=== PATIENT | male | born 1970 | race Hispanic/Latino ===

== ENCOUNTER 2020-09-01 12:11 | Inpatient (IN) | payer BC ==
[~2020-09-01] VITALS: Ht 182.9 cm; Wt 81.4 kg
[2020-09-01] MEDS ORDERED: CEFTRIAXONE 1G VIAL ONE (13:08)
[2020-09-01] MEDS ORDERED: DEXAMETHASONE SOD PHOSPHATE 10MG/ML 1ML VIAL ONE (13:08)
[2020-09-01] MEDS ORDERED: ALBUTEROL INHALER 90MCG/INH IH ONE (13:08)
[2020-09-01] MEDS ORDERED: AZITHROMYCIN 250 MG TABLET PO ONE (13:09)
[2020-09-01] MEDS ORDERED: ACETAMINOPHEN WITH CODEINE 1 TAB TAB ONE (13:09)
[2020-09-01 13:18] LABS: APPEARANCE,URINE Clear (CLEAR); BILIRUBIN,URINE Negative (NEGATIVE); COLOR,URINE Dark Yellow (YELLOW); GLUCOSE, URINE (UA) Negative (NEGATIVE); KETONES,URINE Negative (NEGATIVE); LEUKOCYTE ESTERASE ,URINE Negative (NEGATIVE); NITRATE,URINE Negative (NEGATIVE); OCCULT BLOOD,URINE Negative (NEGATIVE); PROTEIN,URINE POS 1+ mg/dL (NEGATIVE)
[2020-09-01 13:22] LABS: ABG BASE EXCESS -0.6 mmol/L (-2.0-3.0); ABG HCO3 22.2 mmol/L (21.0-28.0); ABG OXYGEN SATURATION 88.9 % (95.0-99.0); ABG PCO2 32 mmHg (35-48)
[2020-09-01 13:22] LABS: BASOPHILS % (AUTO) 0.1 % (0.0-5.0); HEMATOCRIT 46.6 % (42-54); LYMPHOCYTES % (AUTO) 9.2 % (21.0-51.0); MEAN CORPUSCULAR HEMOGLOBIN 29.1 pg (27.0-33.0); MEAN CORPUSCULAR HGB CONC 33.7 g/dL (32.0-36.0); MEAN CORPUSCULAR VOLUME 86.5 fL (79-99); MONOCYTES % (AUTO) 8.8 % (3.0-13.0); NEUTROPHILS % (AUTO) 81.5 % (40.0-77.0); PLATELET COUNT (AUTO) 216 K/uL (130-400); RED BLOOD CELL COUNT(AUTO) 5.39 MIL/uL (4.50-6.20); RED CELL DISTRIBUTION WIDTH 12.5 % (11.0-15.5); WHITE BLOOD COUNT (AUTO) 8.1 K/uL (4.8-10.8)
[2020-09-01 13:30] LABS: CREATININE 1.3 mg/dL (0.5-1.5)
[2020-09-01 13:35] LABS: ALBUMIN 3.4 g/dL (3.5-5.0); BILIRUBIN,TOTAL 0.7 mg/dL (0.2-1.0); PROTHROMBIN TIME 10.7 SEC (9.6-11.6); TOTAL PROTEIN, SERUM 7.5 g/dL (6.0-8.3)
[2020-09-01 13:37] LABS: PARTIAL THROMBOPLASTIN TIME 27.1 SEC (26.3-35.5)
[2020-09-01 13:47] LABS: BACTERIA,URINE Rare /HPF (None Seen); MUCUS,URINE Rare LPF (None Seen); RBC,URINE None Seen /HPF (0-1); SQUAMOUS EPITHELIAL CELL,UR 0-2 /HPF (0-2); WBC,URINE None Seen /HPF (0-1)
[2020-09-01] MEDS ORDERED: ASPIRIN 325 MG TABLET ONE (14:27)
[2020-09-01] MEDS: DEXAMETHASONE SOD PHOSPHATE 4 MG/ML 1ML VIAL IVP SCH (14:45)
[2020-09-01] MEDS ORDERED: ONDANSETRON 4MG INJ IV PRN (14:45)
[2020-09-01] MEDS ORDERED: NITROGLYCERIN 0.4 MG SL TAB SL PRN (14:45)
[2020-09-01] MEDS ORDERED: LACTULOSE 20 GM/30 ML UDCUP PO PRN (14:45)
[2020-09-01] MEDS ORDERED: GUAIFENESIN-DM 200/20 MG 10 ML PO PRN (14:45)
[2020-09-01] MEDS ORDERED: ACETAMINOPHEN 325 MG TAB PO PRN ×2 (14:45)
[2020-09-01] MEDS ORDERED: ERGOCALCIFEROL (VITAMIN D2) 50,000 UNIT CAPSULE PO ONE (14:45)
[2020-09-01] MEDS ORDERED: DIPHENHYDRAMINE HCL 25 MG CAPSULE PO PRN (14:45)
[2020-09-01] MEDS ORDERED: DiphenhydrAMINE HCL 50 MG/ML VIAL IV PRN (14:45)
[2020-09-01] MEDS: CEFTRIAXONE 1G VIAL IV SCH (14:45)
[2020-09-01] MEDS ORDERED: MAG/ALUM/SIMETH 30 ML UDCUP PO PRN (14:45)
[2020-09-01] MEDS ORDERED: ERGOCALCIFEROL (VITAMIN D2) 50,000 UNIT CAPSULE ONE (15:12)
[2020-09-01] MEDS ORDERED: ENOXAPARIN SODIUM 40 MG/0.4 ML SYRINGE SQ ONE (15:13)
[2020-09-01] MEDS ORDERED: ZINC SULFATE 220 CAPSULE ONE (15:13)
[2020-09-01] MEDS ORDERED: ACETYLCYSTEINE 600 MG CAPSULE ONE (15:13)
[2020-09-01] MEDS: ACETYLCYSTEINE 600 MG CAPSULE PO SCH (21:00)
[2020-09-02 05:46] LABS: HEMATOCRIT 42.3 % (42-54); LYMPHOCYTES % (AUTO) 4.3 % (21.0-51.0); MEAN CORPUSCULAR HEMOGLOBIN 29.1 pg (27.0-33.0); MEAN CORPUSCULAR HGB CONC 33.3 g/dL (32.0-36.0); MEAN CORPUSCULAR VOLUME 87.2 fL (79-99); MONOCYTES % (AUTO) 4.3 % (3.0-13.0); NEUTROPHILS % (AUTO) 90.7 % (40.0-77.0); PLATELET COUNT (AUTO) 226 K/uL (130-400); RED BLOOD CELL COUNT(AUTO) 4.85 MIL/uL (4.50-6.20); RED CELL DISTRIBUTION WIDTH 12.5 % (11.0-15.5); WHITE BLOOD COUNT (AUTO) 11.3 K/uL (4.8-10.8)
[2020-09-02 06:17] LABS: ALBUMIN 2.9 g/dL (3.5-5.0); BILIRUBIN,TOTAL 0.6 mg/dL (0.2-1.0); CREATININE 1.1 mg/dL (0.5-1.5); CRP QUANTITATIVE 118.1 mg/L (0.00-9.0); POTASSIUM 3.7 mmol/L (3.5-5.1); TOTAL PROTEIN, SERUM 7.2 g/dL (6.0-8.3)
[2020-09-02] MEDS ORDERED: DEXAMETHASONE SOD PHOSPHATE 10MG/ML 1ML VIAL ONE (08:10)
[2020-09-02] MEDS ORDERED: ASCORBIC ACID 500 MG TAB ONE (08:11)
[2020-09-02] MEDS ORDERED: ZINC SULFATE 220 CAPSULE ONE (08:11)
[2020-09-02] MEDS ORDERED: ACETYLCYSTEINE 600 MG CAPSULE ONE (08:11)
[2020-09-02] MEDS ORDERED: ENOXAPARIN SODIUM 40 MG/0.4 ML SYRINGE SQ ONE (08:11)
[2020-09-02] MEDS ORDERED: ACETAMINOPHEN 325 MG TAB ONE (08:12)
[2020-09-02] MEDS: ZINC SULFATE 220 CAPSULE PO SCH (09:00)
[2020-09-02] MEDS: ACETYLCYSTEINE 600 MG CAPSULE PO SCH ×2 (09:00→21:00)
[2020-09-02] MEDS ORDERED: ENOXAPARIN SODIUM 40 MG/0.4 ML SYRINGE SQ SCH (09:00)
[2020-09-02] MEDS: ASCORBIC ACID 500 MG TAB PO SCH (09:00)
[2020-09-02] MEDS ORDERED: 0.9%NACL 50ML 50 ML IV ONE (14:25)
[2020-09-02] MEDS ORDERED: CEFTRIAXONE 1G VIAL ONE (14:25)
[2020-09-02] MEDS: DEXAMETHASONE SOD PHOSPHATE 4 MG/ML 1ML VIAL IVP SCH (14:45)
[2020-09-02] MEDS: CEFTRIAXONE 1G VIAL IV SCH (14:45)
[2020-09-03] MEDS ORDERED: ACETYLCYSTEINE 600 MG CAPSULE ONE ×3 (03:50→20:10)
[2020-09-03 05:20] LABS: BASOPHILS % (AUTO) 0.1 % (0.0-5.0); HEMATOCRIT 40.9 % (42-54); LYMPHOCYTES % (AUTO) 6.6 % (21.0-51.0); MEAN CORPUSCULAR HEMOGLOBIN 29.2 pg (27.0-33.0); MEAN CORPUSCULAR HGB CONC 33.7 g/dL (32.0-36.0); MEAN CORPUSCULAR VOLUME 86.7 fL (79-99); MONOCYTES % (AUTO) 5.4 % (3.0-13.0); NEUTROPHILS % (AUTO) 87.1 % (40.0-77.0); PLATELET COUNT (AUTO) 286 K/uL (130-400); RED BLOOD CELL COUNT(AUTO) 4.72 MIL/uL (4.50-6.20); RED CELL DISTRIBUTION WIDTH 12.5 % (11.0-15.5); WHITE BLOOD COUNT (AUTO) 14.2 K/uL (4.8-10.8)
[2020-09-03 05:45] LABS: ALBUMIN 2.7 g/dL (3.5-5.0); BILIRUBIN,TOTAL 0.5 mg/dL (0.2-1.0); CRP QUANTITATIVE 179.7 mg/L (0.00-9.0); POTASSIUM 3.9 mmol/L (3.5-5.1); TOTAL PROTEIN, SERUM 7.2 g/dL (6.0-8.3)
[2020-09-03] MEDS: ASCORBIC ACID 500 MG TAB PO SCH (09:00)
[2020-09-03] MEDS: ACETYLCYSTEINE 600 MG CAPSULE PO SCH ×2 (09:00→21:00)
[2020-09-03] MEDS: ZINC SULFATE 220 CAPSULE PO SCH (09:00)
[2020-09-03] MEDS ORDERED: ZINC SULFATE 220 CAPSULE ONE (09:02)
[2020-09-03] MEDS ORDERED: ASCORBIC ACID 500 MG TAB ONE (09:02)
[2020-09-03] MEDS ORDERED: ENOXAPARIN SODIUM 40 MG/0.4 ML SYRINGE SQ ONE (09:03)
[2020-09-03] MEDS: ENOXAPARIN SODIUM 40 MG/0.4 ML SYRINGE SQ SCH ×2 (11:00→21:00)
[2020-09-03] MEDS ORDERED: DEXAMETHASONE SOD PHOSPHATE 10MG/ML 1ML VIAL ONE (14:14)
[2020-09-03] MEDS ORDERED: CEFTRIAXONE 1G VIAL ONE (14:14)
[2020-09-03] MEDS: DEXAMETHASONE SOD PHOSPHATE 4 MG/ML 1ML VIAL IVP SCH (14:45)
[2020-09-03] MEDS: CEFTRIAXONE 1G VIAL IV SCH (14:45)
[2020-09-04 00:15] VITALS: BP 142/92
[2020-09-04 03:30] VITALS: BP 130/73
[2020-09-04 07:00] VITALS: BP 116/72
[2020-09-04 07:16] LABS: BASOPHILS % (AUTO) 0.2 % (0.0-5.0); HEMATOCRIT 42.1 % (42-54); LYMPHOCYTES % (AUTO) 10.4 % (21.0-51.0); MEAN CORPUSCULAR HEMOGLOBIN 28.7 pg (27.0-33.0); MEAN CORPUSCULAR HGB CONC 33.7 g/dL (32.0-36.0); MEAN CORPUSCULAR VOLUME 85.1 fL (79-99); MONOCYTES % (AUTO) 7.9 % (3.0-13.0); NEUTROPHILS % (AUTO) 80.5 % (40.0-77.0); PLATELET COUNT (AUTO) 358 K/uL (130-400); RED BLOOD CELL COUNT(AUTO) 4.95 MIL/uL (4.50-6.20); RED CELL DISTRIBUTION WIDTH 12.6 % (11.0-15.5); WHITE BLOOD COUNT (AUTO) 10.2 K/uL (4.8-10.8)
[2020-09-04 07:38] LABS: ALBUMIN 2.7 g/dL (3.5-5.0); BILIRUBIN,TOTAL 0.6 mg/dL (0.2-1.0); CREATININE 0.9 mg/dL (0.5-1.5); CRP QUANTITATIVE 91.6 mg/L (0.00-9.0); TOTAL PROTEIN, SERUM 7.3 g/dL (6.0-8.3)
[2020-09-04] MEDS ORDERED: CEFDINIR 125MG/5ML 100ML BOTTLE PO SCH (09:00)
[2020-09-04] MEDS: ZINC SULFATE 220 CAPSULE PO SCH (09:07)
[2020-09-04] MEDS: ASCORBIC ACID 500 MG TAB PO SCH (09:07)
[2020-09-04] MEDS: ACETYLCYSTEINE 600 MG CAPSULE PO SCH ×2 (09:07→20:13)
[2020-09-04] MEDS: ENOXAPARIN SODIUM 40 MG/0.4 ML SYRINGE SQ SCH ×2 (09:07→20:14)
[2020-09-04] MEDS: CEFDINIR 125MG/5ML 100ML BOTTLE PO SCH ×2 (10:15→20:13)
[2020-09-04 11:00] VITALS: BP 123/79
[2020-09-04] MEDS: DEXAMETHASONE SOD PHOSPHATE 4 MG/ML 1ML VIAL IVP SCH (13:48)
[2020-09-04 16:00] VITALS: BP 113/74
[2020-09-04 20:00] VITALS: BP 120/72
[2020-09-05] VITALS: BP 100/57
[2020-09-05 04:00] VITALS: BP 109/71
[2020-09-05 04:36] LABS: HEMATOCRIT 41.5 % (42-54); MEAN CORPUSCULAR HEMOGLOBIN 28.7 pg (27.0-33.0); MEAN CORPUSCULAR HGB CONC 33.3 g/dL (32.0-36.0); MEAN CORPUSCULAR VOLUME 86.3 fL (79-99); NEUTROPHILS % (AUTO) 76.8 % (40.0-77.0); PLATELET COUNT (AUTO) 382 K/uL (130-400); RED BLOOD CELL COUNT(AUTO) 4.81 MIL/uL (4.50-6.20); RED CELL DISTRIBUTION WIDTH 12.4 % (11.0-15.5); WHITE BLOOD COUNT (AUTO) 9.4 K/uL (4.8-10.8)
[2020-09-05 04:37] LABS: BASOPHILS % (AUTO) 0.2 % (0.0-5.0); LYMPHOCYTES % (AUTO) 13.5 % (21.0-51.0); MONOCYTES % (AUTO) 8.1 % (3.0-13.0)
[2020-09-05 04:59] LABS: CRP QUANTITATIVE 48.9 mg/L (0.00-9.0); POTASSIUM 4.2 mmol/L (3.5-5.1)
[2020-09-05 09:00] VITALS: BP 100/57
[2020-09-05] MEDS: ZINC SULFATE 220 CAPSULE PO SCH (09:20)
[2020-09-05] MEDS: ASCORBIC ACID 500 MG TAB PO SCH (09:20)
[2020-09-05] MEDS: ACETYLCYSTEINE 600 MG CAPSULE PO SCH ×2 (09:20→21:14)
[2020-09-05] MEDS: ENOXAPARIN SODIUM 40 MG/0.4 ML SYRINGE SQ SCH ×2 (09:21→21:14)
[2020-09-05 12:30] VITALS: BP 92/53
[2020-09-05] MEDS: CEFDINIR 125MG/5ML 100ML BOTTLE PO SCH ×2 (12:45→21:15)
[2020-09-05] MEDS: DEXAMETHASONE SOD PHOSPHATE 4 MG/ML 1ML VIAL IVP SCH (12:46)
[2020-09-05 17:14] VITALS: BP 111/65
[2020-09-05 20:00] VITALS: BP 105/68
[2020-09-06] VITALS (7 sets, daily range): BP systolic 101–121; BP diastolic 64–78
[2020-09-06 05:29] LABS: CARBON DIOXIDE 28 mmol/L (21-32); CHLORIDE 101 mmol/L (101-111); GLOMERULAR FILTR. RATE CALC 85 mL/min (>60); GLUCOSE,RANDOM 93 mg/dL (70-105); SODIUM SERUM 137 mmol/L (136-145); UREA NITROGEN, BLOOD 19 mg/dL (7-18)
[2020-09-06] MEDS: CEFDINIR 125MG/5ML 100ML BOTTLE PO SCH ×2 (09:30→20:21)
[2020-09-06] MEDS: ZINC SULFATE 220 CAPSULE PO SCH (09:31)
[2020-09-06] MEDS: ACETYLCYSTEINE 600 MG CAPSULE PO SCH ×2 (09:33→20:21)
[2020-09-06] MEDS: ASCORBIC ACID 500 MG TAB PO SCH (09:33)
[2020-09-06] MEDS: ENOXAPARIN SODIUM 40 MG/0.4 ML SYRINGE SQ SCH ×2 (09:34→20:25)
[2020-09-06] MEDS: DEXAMETHASONE SOD PHOSPHATE 4 MG/ML 1ML VIAL IVP SCH (15:25)
[2020-09-07] VITALS: BP 103/62
[2020-09-07 04:00] VITALS: BP 102/68
[2020-09-07 08:00] VITALS: BP 115/67
[2020-09-07] MEDS: ASCORBIC ACID 500 MG TAB PO SCH (09:34)
[2020-09-07] MEDS: ACETYLCYSTEINE 600 MG CAPSULE PO SCH (09:34)
[2020-09-07] MEDS: ZINC SULFATE 220 CAPSULE PO SCH (09:34)
[2020-09-07] MEDS: ENOXAPARIN SODIUM 40 MG/0.4 ML SYRINGE SQ SCH (09:35)
[2020-09-07] MEDS: CEFDINIR 125MG/5ML 100ML BOTTLE PO SCH (09:35)
[2020-09-07 12:00] VITALS: BP 102/67
[2020-09-07] MEDS ORDERED: ASCO500C6 PO (15:33)
[2020-09-07] MEDS ORDERED: DEXA6TAB PO (15:33)
[2020-09-07] MEDS ORDERED: ZINC220C6 PO (15:33)
[2020-09-07] MEDS ORDERED: ASPI-1197 PO (15:33)
[2020-09-07 15:40] VITALS: BP 102/67
[2020-09-07] MEDS: DEXAMETHASONE SOD PHOSPHATE 4 MG/ML 1ML VIAL IVP SCH (16:07)
== END 2020-09-07 18:00 | disposition home or self-care (01) | DRG 177 ==
LOC: EDH 12:11 → EDHIP 14:41 → 4AH 09-04 00:20
PROVIDERS: ADMIT Family Medicine; ATTEND Family Medicine
PROC: XW13325 Transfusion of Convalescent Plasma (Nonautologous) into Peripheral Vein, Percutaneous Approach, New Technology Group 5 (ICD-10-PCS; principal; 2020-09-02)
DX: U07.1 COVID-19 (principal); J96.01 Acute respiratory failure with hypoxia; J12.82 Pneumonia due to coronavirus disease 2019; T38.0X5A Adverse effect of glucocorticoids and synthetic analogues, initial encounter; Y92.89 Other specified places as the place of occurrence of the external cause
CPT/HCPCS: 36415; 36600; 71045; 71250; 80048; 80053; 81001; 82550; 82728; 82803; 83605; 83615; 84145; 84484; 85025; 85378; 85610; 85730; 86140; 86900; 86901; 86927; 87040; 87426; 87804; 87880; 93005; 94760; 99291; G0378; J0696; J1100; J1650